=== PATIENT | female | born 1985 | race Caucasian/White ===

== ENCOUNTER → 2017-02-23 | Outpatient (CLI) | payer BC | LOC: CARDREHAB 08:12 | DX: R06.83 Snoring (principal) | CPT/HCPCS: G0399 ==

== ENCOUNTER → 2017-06-19 | Outpatient (CLI) | payer BC | LOC: CARDREHAB 08:59 | DX: R07.9 Chest pain, unspecified (principal) | CPT/HCPCS: A9500 ==

== ENCOUNTER → 2017-06-24 | Outpatient (CLI) | payer BC | LOC: RAD 13:00 → VAS 17:14 | DX: R07.9 Chest pain, unspecified (principal) ==